=== PATIENT | male | born 1965 ===

== ENCOUNTER 2018-03-27 23:47 | Emergency (ER) | payer SELFPAY ==
[2018-03-27 23:50] VITALS: RESP 16
--- NOTE | 2018-03-28 00:12 | ED PDOC ---
HPI: Psych/Substance Abuse Time Seen by Provider: 03/27/18 23:55 Chief Complaint (Nursing): Alcohol Ingestion Chief Complaint (Provider): ETOH History Per: Patient Additional Complaint(s): 52 y/o male brought in by EMS for public intoxication. Patient admits to drinking tonight, denies acute medical or psychiatric complaints. Past Medical History Reviewed: Historical Data, Nursing Documentation, Vital Signs Vital Signs: Last Vital Signs Temp 98 F 03/27/18 23:48 Pulse 98 H 03/27/18 23:48 Resp 16 03/27/18 23:48 BP 150/98 H 03/27/18 23:48 Pulse Ox 97 03/27/18 23:48 - Medical History PMH: No Chronic Diseases - Surgical History Surgical History: No Surg Hx - Family History Family History: States: No Known Family Hx - Allergies Allergies/Adverse Reactions: Allergies Allergy/AdvReac Type Severity Reaction Status Date / Time No Known Allergies Allergy Verified 03/27/18 23:48 Review of Systems ROS Statement: Except As Marked, All Systems Reviewed And Found Negative Physical Exam - Reviewed Nursing Documentation Reviewed: Yes Vital Signs Reviewed: Yes - Physical Exam Appears: Positive for: Well, Non-toxic, No Acute Distress (intoxicated; slurred speech, unsteady gait) Head Exam: Positive for: ATRAUMATIC, NORMAL INSPECTION, NORMOCEPHALIC Skin: Positive for: Normal Color Eye Exam: Positive for: Normal appearance ENT: Positive for: Normal ENT Inspection Cardiovascular/Chest: Positive for: Regular Rate, Rhythm Respiratory: Positive for: Normal Breath Sounds Gastrointestinal/Abdominal: Positive for: Normal Exam Back: Positive for: Normal Inspection Extremity: Positive for: Normal ROM Neurologic/Psych: Positive for: Alert, Oriented (x3) - ECG O2 Sat by Pulse Oximetry: 97 - Progress ED Course And Treament: accucheck 1:30 Patient sleeping; no distress 3:00 Patient sleeping; no distress 4:30 Patient sleeping; no distress 6:00 Patient awake, alert, oriented x3. Ambulating steady gait Stable for discharge Disposition - Clinical Impression Clinical Impression: Acute alcohol intoxication - Patient ED Disposition Is Patient to be Admitted: No Counseled Patient/Family Regarding: Studies Performed, Diagnosis, Need For Followup - Disposition Disposition: Routine/Home Disposition Time: 06:00 Condition: STABLE Instructions: Alcohol Use - When Is Drinking a Problem? Print Language: [place]
[2018-03-28 06:08] VITALS: BP 133/83; PULSE 82; TEMP 98.3
[2018-04-01 05:45] VITALS: O2SAT 97
== END 2018-03-28 06:15 | disposition home or self-care (01) ==
LOC: H.ER 23:47
DX: F10.129 Alcohol abuse with intoxication, unspecified (principal)